=== PATIENT | male | born 1970 | race Caucasian/White ===

== ENCOUNTER 2018-06-29 18:18 | Emergency (ER) | payer SELFPAY ==
[~2018-06-29] VITALS: Ht 167.6 cm; Wt 62.7 kg
[2018-06-29 18:31] VITALS: Ht 167.6 cm; Wt 62.7 kg
[2018-06-29 19:56] LABS: APPEARANCE CLEAR (CLEAR); COLOR YELLOW (YELLOW); SPECIFIC GRAVITY 1.015 (1.005-1.020)
[2018-06-29 19:57] LABS: BILIRUBIN NEGATIVE (NEGATIVE); GLUCOSE NEGATIVE (NEGATIVE); KETONE NEGATIVE (NEGATIVE); NITRITE NEGATIVE (NEGATIVE); PROTEIN NEGATIVE (NEGATIVE); RED CELLS - URINE NONE SEEN /hpf (0-5); UROBILINOGEN NORMAL (NORMAL); WHITE CELLS - URINE NSEEN /hpf (0-5)
[2018-06-29 20:04] VITALS: BP 132/88
== END 2018-06-29 20:05 | disposition home or self-care (01) ==
LOC: D.ER 18:18
PROVIDERS: Family Medicine
DX: Z20.2 Contact with and (suspected) exposure to infections with a predominantly sexual mode of transmission (principal); R11.0 Nausea; F17.200 Nicotine dependence, unspecified, uncomplicated

== ENCOUNTER 2018-12-22 19:14 | Emergency (ER) | payer MEDICAID ==
[2018-12-22] MEDS ORDERED: PLAVIX75 MG (19:25)
[2018-12-22] MEDS ORDERED: LIPITOR40 MG PO (19:25)
[2018-12-22] MEDS ORDERED: BAYER CHEWABLE81 MG PO (19:25)
[2018-12-22] MEDS ORDERED: METOPROLOL TART25 MG PO (19:25)
[2018-12-22 20:32] LABS: BASOPHILS 0.2 % (0-2); HEMATOCRIT 43.6 % (42.0-54.0); HEMOGLOBIN 14.5 g/dL (13.5-17.5); IMMATURE GRANULOCYTES 0.1 % (0-5); LYMPHOCYTES 36.9 % (15-50); MCH 28.6 pg (26.0-34.0); MCHC 33.3 g/dL (31.0-37.0); MEAN PLATELET VOLUME 9.9 fL (7.4-10.4); NEUTROPHILS 55.8 % (40-80); PLATELET COUNT 336 10x3/uL (130-400); RBC 5.07 10x6/uL (4.20-6.10); WBC 8.3 10x3/uL (4.8-10.8)
[2018-12-22 20:55] LABS: ALBUMIN 3.6 g/dL (3.4-5.0); ALKALINE PHOSPHATASE 101 U/L (46-116); ALT (SGPT) 16 U/L (10-68); BILIRUBIN - TOTAL 0.19 mg/dL (0.2-1.3); CALCIUM 9.3 mg/dL (8.5-10.1); CARBON DIOXIDE 29.9 mmol/L (21.0-32.0); CHLORIDE - SERUM 106 mmol/L (98-107); CREATININE - SERUM 0.7 mg/dL (0.6-1.3); POTASSIUM - SERUM 4.1 mmol/L (3.5-5.1); PROTEIN - SERUM 7.9 g/dL (6.4-8.2); SODIUM 142 mmol/L (136-145); UREA NITROGEN 9 mg/dL (7-18); eGFR NON AFRICAN AMERICAN > 90 mL/min (90-120)
[2018-12-22 21:02] LABS: CALC OSMOLALITY 281 mosm/kg (275-300); GLUCOSE 106 mg/dL (74-106)
[2018-12-22 21:18] LABS: APPEARANCE HAZY (CLEAR); BILIRUBIN NEGATIVE (NEGATIVE); COLOR YELLOW (YELLOW); GLUCOSE NEGATIVE (NEGATIVE); KETONE NEGATIVE (NEGATIVE); NITRITE NEGATIVE (NEGATIVE); PROTEIN NEGATIVE (NEGATIVE); SPECIFIC GRAVITY 1.015 (1.005-1.020); UROBILINOGEN NORMAL (NORMAL)
[2018-12-22 21:21] LABS: BACTERIA FEW /hpf (NONE SEEN); RED CELLS - URINE 0-5 /hpf (0-5); WHITE CELLS - URINE OCC /hpf (0-5)
== END 2018-12-23 00:28 | disposition home or self-care (01) ==
LOC: D.ER 19:14
PROVIDERS: Family Medicine
DX: R10.9 Unspecified abdominal pain (principal)